=== PATIENT | male | born 1970 | race African-American/Black ===

== ENCOUNTER 2022-01-06 00:39 | Emergency (ER) | payer OTHER | END 2022-01-06 01:35 | disposition home or self-care (01) | LOC: CSHERS 00:39 | DX: M70.51 Other bursitis of knee, right knee (principal); E78.5 Hyperlipidemia, unspecified; E11.9 Type 2 diabetes mellitus without complications; I10 Essential (primary) hypertension; Z79.4 Long term (current) use of insulin; Z79.899 Other long term (current) drug therapy ==

== ENCOUNTER 2025-05-13 18:08 | Emergency (ER) | payer MEDICAID, OTHER ==
[~2025-05-13 18:08] MED LIST: Iopamidol 300 61% 100 ML VIAL FS ONE
[2025-05-13 19:48] LABS: #Basophils 0.05 10x3/uL (0.0-0.2); #Eosinophils 0.75 10x3/uL (0.0-0.5); #Monocytes 0.56 10x3/uL (0.0-1.1); #Neutrophils 3.88 10x3/uL (1.5-8.4); %Basophils 0.7 % (0.0-2.0); %Eosinophils 10.7 % (0.0-6.0); %Lymphocytes 25.0 % (18.0-47.0); %Monocytes 8.0 % (0.0-10.0); %Neutrophils 55.3 % (40.0-75.0); Hematocrit 37.4 % (38.8-50.0); Hemoglobin 12.1 g/dL (13.5-17.5); Mean Corpuscular Hemoglobin 28.1 pg (27.0-33.0); Mean Corpuscular Volume 87.0 fL (81.2-95.1); Platelet Count 199 10x3/uL (150-450); Red Blood Cell (RBC) Count 4.30 10x6/uL (4.32-5.72); White Blood Cell (WBC) Count 7.01 10x3/uL (3.5-10.5)
[2025-05-13 19:50] LABS: ALT (SGPT) 22 U/L (Less than 45); AST (SGOT) 329 U/L (11-34); Albumin 4.0 g/dL (3.1-4.5); Alkaline Phosphatase 67 U/L (40-110); Anion Gap 14 mmol/L (10-20); BUN (Urea Nitrogen) 22 mg/dL (8.4-25.7); Bilirubin, Total 0.2 mg/dL (0.3-1.2); Calc. Creatinine Clearance 0 mL/min (70-130); Calcium 9.6 mg/dL (7.8-10.44); Carbon Dioxide 31 mmol/L (22-29); Chloride 101 mmol/L (98-107); Globulin 4.0 g/dL (2.4-3.5); Glucose 145 mg/dL (70-105); Lipase 42 U/L (8-78); Potassium 3.8 mmol/L (3.5-5.1); Sodium 142 mmol/L (136-145)
[2025-05-13 20:03] LABS: Glucose, Urine (Dipstick) Normal (Negative); Leukocyte 25 (Negative); Protein, Urine (Dipstick) 15 mg/dl (Neg-Trace); Specific Gravity, Urine 1.020 (1.005-1.030)
[2025-05-13 20:18] LABS: CAUTI Indications for Culture Dysuria,urgency,freq; RBC/HPF 0-3 HPF (0-3)
[2025-05-13 20:19] LABS: Bacteria/HPF None Seen HPF (None Seen); Urine Culture Reflex No No
[2025-05-14 08:21] LABS: HIV (1/2) Antibody/Antigen NonReactive (NonReactive); HIV 1/2 INDEX 0.70 S/CO (<1.00)
== END 2025-05-13 23:30 | disposition home or self-care (01) ==
LOC: CSHERS 18:08
DX: K11.8 Other diseases of salivary glands (principal); K44.9 Diaphragmatic hernia without obstruction or gangrene; R59.1 Generalized enlarged lymph nodes; E11.9 Type 2 diabetes mellitus without complications; I10 Essential (primary) hypertension; F17.210 Nicotine dependence, cigarettes, uncomplicated
CPT/HCPCS: 36415; 70487; 74160; 80053; 81001; 83690; 85025; 87389; Q9967